=== PATIENT | female | born 1995 | race Two or more races ===

== ENCOUNTER 2016-11-16 16:05 | Emergency (ER) | payer OTHER ==
--- NOTE | 2016-11-16 16:22 | ER Document Report ---
ED Medical Screen (RME) - General Stated Complaint: GROIN PAIN Time seen by provider: 16:19 Mode of Arrival: Ambulatory Information source: Patient Notes: 21-year-old female presents to ED for right pelvic pain that started about 2 hours ago. She states she just finished her period. Last menstrual period 11/2016. She states she has a history of having her right fallopian tube taken out for ovarian cyst. States she has pain when she urinates and is a pressure in her vaginal area I have greeted and performed a rapid initial assessment of this patient. A comprehensive ED assessment and evaluation of the patient, analysis of test results and completion of medical decision making process will be conducted by an additional ED providers.. Physical Exam - Vital signs Vitals: Temp Pulse Resp BP Pulse Ox 97.8 F 74 16 148/76 H 99 11/16/16 16:15 11/16/16 16:15 11/16/16 16:15 11/16/16 16:15 11/16/16 16:15 Course - Vital Signs Vital signs: Temp Pulse Resp BP Pulse Ox 97.8 F 74 16 148/76 H 99 11/16/16 16:15 11/16/16 16:15 11/16/16 16:15 11/16/16 16:15 11/16/16 16:15
[2016-11-16] MEDS ORDERED: ONDANSETRON 4 MG TAB.RAPDIS PO ONE (16:23)
[2016-11-16] MEDS ORDERED: IBUPROFEN 800 MG TABLET PO ONE (16:23)
[2016-11-16 16:46] LABS: ABSOLUTE BASOPHILS # (AUTO) 0.1 10^3/uL (0.0-0.2); ABSOLUTE EOSINOPHILS # (AUTO) 0.1 10^3/uL (0.0-0.6); ABSOLUTE LYMPHOCYTES (AUTO) 3.4 10^3/uL (0.5-4.7); ABSOLUTE MONOCYTES (AUTO) 0.6 10^3/uL (0.1-1.4); ABSOLUTE NEUT (AUTO) 8.6 10^3/uL (1.7-8.2); BASOPHILS % (AUTO) 0.5 % (0-2); EOSINOPHILS % (AUTO) 0.4 % (0-6); HEMOGLOBIN 13.4 g/dL (12.0-15.5); HGB HCT DIFFERENCE -1.8; LYMPHOCYTES % (AUTO) 26.9 % (13-45); MEAN CORPUSCULAR HEMOGLOBIN 26.6 pg (27.0-33.4); MEAN CORPUSCULAR HGB CONC 31.9 g/dL (32.0-36.0); MEAN CORPUSCULAR VOLUME 84 fl (80-97); MONOCYTES % (AUTO) 4.7 % (3-13); RED BLOOD COUNT 5.03 10^6/uL (3.72-5.28); RED CELL DISTRIBUTION WIDTH 13.7 % (11.5-14.0); SEGMENTED NEUTROPHILS % (AUTO) 67.5 % (42-78); WHITE BLOOD COUNT 12.7 10^3/uL (4.0-10.5)
[2016-11-16 17:12] LABS: ALANINE AMINOTRANSFERASE 39 U/L (9-52); ALBUMIN 4.6 g/dL (3.5-5.0); ALKALINE PHOSPHATASE 72 U/L (38-126); ANION GAP 11 (5-19); ASPARTATE AMINO TRANSFERASE 23 U/L (14-36); BILIRUBIN,TOTAL 0.6 mg/dL (0.2-1.3); BLOOD UREA NITROGEN 13 mg/dL (7-20); CALCIUM 10.2 mg/dL (8.4-10.2); CARBON DIOXIDE 27 mmol/L (22-30); CHLORIDE 105 mmol/L (98-107); CREATININE RESULT 0.92 mg/dL (0.52-1.25); GLUCOSE 106 mg/dL (75-110); POTASSIUM 4.4 mmol/L (3.6-5.0); SODIUM 143.2 mmol/L (137-145); TOTAL PROTEIN 7.5 g/dL (6.3-8.2)
[2016-11-16 17:40] LABS: AMORPHOUS SEDIMENT,URINE TRACE /HPF; APPEARANCE,URINE TURBID; BILIRUBIN,URINE NEGATIVE (NEGATIVE); GLUCOSE, URINE NEGATIVE (NEGATIVE); KETONES,URINE NEGATIVE (NEGATIVE); LEUKOCYTE ESTERASE,URINE NEGATIVE (NEGATIVE); NITRITE,URINE NEGATIVE (NEGATIVE); PROTEIN,URINE 30 mg/dL (NEGATIVE); URINE SPECIFIC GRAVITY 1.033; UROBILINOGEN,URINE NEGATIVE mg/dL (<2.0)
[2016-11-16] MEDS ORDERED: NORMAL SALINE 1000 ML 1,000 ML IV ONE (17:56)
[2016-11-16] MEDS ORDERED: MORPHINE SULFATE 10 MG/ML INJ IV ONE (17:57)
[2016-11-16] MEDS ORDERED: TAMSULOSIN HCL 0.4 MG CAP.SR.24H PO ONE (19:43)
--- NOTE | 2016-11-16 20:01 | ER Document Report ---
ED GI/ - General Chief Complaint: Lower Abdominal Pain Stated Complaint: GROIN PAIN Mode of Arrival: Ambulatory Information source: Patient Notes: 21-year-old female presents to the emergency department complaining of right flank and right lower abdominal/pelvic pain that began this morning. Patient reports sudden onset sharp/stabbing pain to right flank that radiates to right lower pelvic/suprapubic area. Patient reports history of right fallopian tube removal due to cyst and torsion several years ago and states pain feels similar although she states was told her ovary was sutured in place so it would not happen again. Reports has vomited twice today due to the pain. Patient states has had similar episodes over the last 3 months usually several days after her menstrual period and. States her last menstrual period ended 3 days ago. Denies fever, chest pain, shortness of breath, hematuria, dysuria, vaginal bleeding or discharge. TRAVEL OUTSIDE OF THE [place] IN LAST 30 DAYS: No - HPI Patient complains to provider of: Flank pain, Pelvic pain Onset: This morning Timing/Duration: Sudden Quality of pain: Sharp, Stabbing Severity at maximum: Severe Severity in ED: Moderate Pain Level: 3 Location: RLQ, Right flank, Suprapubic Vaginal bleeding (Compared to normal period): None Sexual history: denies: STD exposure Similar symptoms previously: Yes Recently seen / treated by doctor: No - Related Data Allergies/Adverse Reactions: amoxicillin Allergy (Verified 11/16/16 16:25) hydrocodone Allergy (Verified 11/16/16 16:25) latex Allergy (Verified 11/16/16 16:25) Past Medical History - General Information source: Patient - Social History Smoking Status: Current Some Day Smoker Chew tobacco use (# tins/day): Yes Frequency of alcohol use: None Drug Abuse: None Lives with: Family Family History: Reviewed & Not Pertinent Patient has suicidal ideation: No Patient has homicidal ideation: No - Medical History Medical History: Negative Renal/ Medical History: Denies: Hx Peritoneal Dialysis Past Surgical History: Reports: Hx Gynecologic Surgery - Immunizations Hx Diphtheria, Pertussis, Tetanus Vaccination: Yes Review of Systems - Review of Systems Constitutional: No symptoms reported EENT: No symptoms reported Cardiovascular: No symptoms reported Respiratory: No symptoms reported Gastrointestinal: See HPI Genitourinary: See HPI Female Genitourinary: No symptoms reported Musculoskeletal: No symptoms reported Skin: No symptoms reported Hematologic/Lymphatic: No symptoms reported Neurological/Psychological: No symptoms reported -: Yes All other systems reviewed and negative Physical Exam - Vital signs Vitals: Temp Pulse Resp BP Pulse Ox 97.8 F 74 16 148/76 H 99 11/16/16 16:15 11/16/16 16:15 11/16/16 16:15 11/16/16 16:15 11/16/16 16:15 Interpretation: Normal - General General appearance: Appears well, Alert In distress: None - HEENT Head: Normocephalic, Atraumatic Eyes: Normal Pupils: PERRL - Respiratory Respiratory status: No respiratory distress Chest status: Nontender Breath sounds: Normal Chest palpation: Normal - Cardiovascular Rhythm: Regular Heart sounds: Normal auscultation Murmur: No Pulses: Normal: Radial, Posterior tibial, Dorsalis pedis Normal capillary refill: Yes - Abdominal Inspection: Normal Distension: No distension Bowel sounds: Normal Tenderness: Tender - Mild tenderness to palpation to right groin/right lower pelvic area.. No: Nontender, McBurney's point, Tran's sign, Guarding, Rebound , Other Organomegaly: No organomegaly - Back Back: Tender - Mild tenderness to palpation to right flank area.. No: Normal, Nontender, Deformity/step-off, CVA tenderness, Vertebra tenderness, Scars, Scoliosis, Wounds, Other - Extremities General upper extremity: Normal inspection, Nontender, Normal color, Normal ROM , Normal strength, Normal temperature. No: Tender, Edema General lower extremity: Normal inspection, Nontender, Normal color, Normal ROM , Normal strength, Normal temperature, Normal weight bearing. No: Tender, Edema , Yossi's sign - Neurological Neuro grossly intact: Yes Cognition: Normal Orientation: AAOx4 Ti Coma Scale Eye Opening: Spontaneous Ti Coma Scale Verbal: Oriented [place] Coma Scale Motor: Obeys Commands Ti Coma Scale Total: 15 Speech: Normal Motor strength normal: LUE, RUE, LLE, RLE Sensory: Normal - Psychological Associated symptoms: Normal affect, Normal mood - Skin Skin Temperature: Warm Skin Moisture: Dry Skin Color: Normal Skin Turgor: Elastic Course - Re-evaluation Re-evalutation: 11/16/16 20:10 Patient hemodynamically stable, in no distress, afebrile. Mild leukocytosis and moderate hematuria on UA otherwise labs unremarkable. CT scan shows right small ureteral stones with mild hydroureter and hydronephrosis with no other significant abdominal/pelvic findings including normal appendix and no pelvic masses, cysts, free fluid. Patient appears so for discharge and agrees with home care, follow-up with PCP and urology, and ED return precautions. Patient presentation, findings, ED care, and plan discussed with ED physician Dr. Ulrich who concurs with evaluation and treatment plan. - Vital Signs Vital signs: Temp Pulse Resp BP Pulse Ox 98.6 F 80 16 130/76 H 100 11/16/16 20:24 11/16/16 20:24 11/16/16 20:24 11/16/16 20:24 11/16/16 20:24 - Laboratory Result Diagrams: 11/16/16 16:25 11/16/16 16:25 Laboratory results interpreted by me: 11/16/16 11/16/16 16:25 16:25 WBC 12.7 H MCH 26.6 L MCHC 31.9 L Absolute Neutrophils 8.6 H Urine Protein 30 H Urine Blood MODERATE H Urine Ascorbic Acid 40 H - Diagnostic Test Radiology reviewed: Image reviewed, Reports reviewed Discharge - Discharge Clinical Impression: Ureteral stone Condition: Stable Disposition: HOME, SELF-CARE Instructions: Family Physicians / Practices Additional Instructions: KIDNEY STONE: You are passing or have passed a kidney stone. These stones are usually due to increased calcium or uric acid concentrations in your urine. Stones within the kidney itself are not painful. The pain occurs as the stone leaves the kidney to pass down the long tube, called the ureter, leading to the bladder. If the stone is small, it will usually pass by itself. Most patients can pass the stone at home. You will usually receive medications for pain, nausea or vomiting, and sometimes a medication to assist in passing the kidney stone. However, if the pain is very severe or if vomiting prevents you from taking oral pain medications, you may need to return for further treatment. Drink three or four quarts of fluids per day. You will be given pain medication (if needed) and urine strainers. Strain all your urine to see if the stone passes. If your doctor has asked you to bring the stone in for analysis, return with the stone once it has passed. Return if pain or vomiting become severe, if you develop a high fever, if you are unable to pass your urine, or if other unusual symptoms occur. PAIN MEDICATION INJECTION: You have received an injection of a pain medication. You should experience significant pain relief within 45 minutes. This drug is a narcotic - - it will impair your judgement, slow your reaction time and make you sleepy ( as well as relieve your pain). Narcotics also can cause nausea. You should not drive, work with machinery, or perform any task requiring mental alertness until all effects of the medication are gone -- six to eight hours. Do not take any alcohol, or sedatives, and do not take any other medication without checking with your physician. ORAL NARCOTIC MEDICATION: You have been given a prescription for pain control. This medication is a narcotic. It's best taken with food, as nausea can result if taken on an empty stomach. Don't operate machinery or drive within six hours of taking this medication. Do not combine this medicine with alcohol, or with any medication which can cause sedation (such as cold tablets or sleeping pills) unless you get permission from the physician. Narcotics tend to cause constipation. If possible, drink plenty of fluids and eat a diet high in fiber and fruits. Please be aware that prescription narcotics also have the potential for abuse. People become addicted to these medications because of the general sense of wellbeing that they induce. This feeling along with a significant reduction in tension, anxiety, and aggression provides a stimulating seductive quality to these drugs. Once your pain is under control, we encourage you to discard your unused narcotics. FLOMAX (tamsulosin): Flomax is a medicine that shrinks the prostate gland. It helps relieve symptoms of benign prostatic hypertrophy, such as frequent urination, weak stream, and inadequate emptying. It has been shown to dilate the ureter (tube leading from the kidney to the bladder) and help in passing kidney stones Flomax usually causes no side effects. You may notice slight tiredness and dizziness for a few days. Some patients develop nasal congestion. Rarely, impotence can occur. If the symptoms are bothersome and don't improve with continued use, call your doctor. Contact your doctor or return if you have fainting spells, severe weakness or dizziness, shortness of breath, or rash. FOLLOW-UP CARE: Drink plenty of fluids. Follow-up with urology tomorrow as discussed. Return to the emergency department for any worsening symptoms or concerns. Prescriptions: Oxycodone HCl/Acetaminophen [Percocet 5-325 mg Tablet] 1 tab PO Q6HP PRN #10 tablet PRN Reason: Ondansetron [Zofran Odt 4 mg Tablet] 1 tab PO Q4H PRN #15 tab.rapdis PRN Reason: For Nausea/Vomiting Tamsulosin HCl [Flomax 0.4 mg Cap.sr] 0.4 mg PO DAILY #7 cap.sr.24h Forms: Elevated Blood Pressure Referrals: [facility] [Provider Group] - Follow up tomorrow
[2016-11-16 20:24] VITALS: BP 130/76
== END 2016-11-16 20:26 | disposition home or self-care (01) ==
LOC: ER 16:05
DX: N20.1 Calculus of ureter (principal); R10.30 Lower abdominal pain, unspecified; R10.31 Right lower quadrant pain; R10.2 Pelvic and perineal pain; R11.10 Vomiting, unspecified; F17.210 Nicotine dependence, cigarettes, uncomplicated
CPT/HCPCS: 99284; 96361; 96374; 36415; 84703; 85025; 80053; 81001; 76380; S0119; J2270; J7030